=== PATIENT | male | born 1970 | race Hispanic/Latino ===

== ENCOUNTER 2018-04-17 07:56 | Outpatient (CLI) | payer BC ==
--- NOTE | 2018-04-17 09:50 | ULT ---
RIGHT UPPER QUADRANT ULTRASOUND: HISTORY: A 47-year-old male with a history of abdominal pain. FINDINGS: There is very severe, coarse echogenicity throughout the liver, evidence for severe fatty change. Th e gallbladder demonstrates no evidence of gallstones, wall thickening, edema, or pericholecystic flui d. The common bile duct is 0.4 cm. Small right renal cysts, at 1.4 cm. IMPRESSION: 1. Very markedly echogenic liver. 2. No evidence for gallstones, wall thickening, edema, pericholecystic fluid, or ductal dilatation. 3. Small right renal cyst. POS: OFF
== END 2018-04-17 07:57 | disposition home or self-care (01) ==
LOC: SCSULT 07:56
PROVIDERS: ATTEND Family Medicine
DX: R10.9 Unspecified abdominal pain (principal); N28.1 Cyst of kidney, acquired; R93.2 Abnormal findings on diagnostic imaging of liver and biliary tract
CPT/HCPCS: 76705